=== PATIENT | female | born 1995 ===

== ENCOUNTER 2019-08-14 00:19 | Inpatient (IN) ==
[2019-08-14] MEDS ORDERED: OXYTOCIN 30 UNITS/500 ML BAG IV PRN ×2 (00:45→07:09)
[2019-08-14] MEDS: LACTATED RINGER'S 1,000 ML IV PRN ×2 (00:50→03:06)
[2019-08-14 01:03] LABS: Hemoglobin 9.7 g/dL (12.0-16.0); Mean Corpuscular Hemoglobin 30.1 pg (25-34); Mean Corpuscular Volume 93.2 fL (80-100); Mean Platelet Volume 10.2 fL (7.4-10.4); Nucleated RBC % (auto) 0.6 %; Platelet Count 176 K/uL (130-400); RDW Coefficient of Variation 13.3 % (11.5-14.5); RDW Standard Deviation 45.2 fL (36.4-46.3); Red Blood Count 3.22 M/uL (4.2-5.4); White Blood Count 14.67 K/uL (4.8-10.8)
--- NOTE | 2019-08-14 01:08 | Obstetrical Progress Note ---
Date of Service August 14, 2019 Physical Exam Physical Exam: Admit Note 23 F P0000 at 40.1 weeks admitted in active labor. GBS is negative, FHT Cat 1 with active ctx every 2-3 minutes. Cervix 7.8/90/-2/vertex. epidural planned and anticipate normal delivery. Results & Data ([facility]) Vital Signs (Past 12 Hours) Vital Signs Temp Resp 08/14/19 00:36 37.2 C 18
[2019-08-14 01:10] LABS: Mean Corpuscular Hgb Conc 32.3 g/dL (32-36)
[2019-08-14] MEDS ORDERED: BUPIVACAINE 0.25% 30 ML VIAL ONE (01:11)
[2019-08-14] MEDS ORDERED: fentaNYL citrate 100 MCG/2 ML VIAL ONE (01:11)
[2019-08-14] MEDS ORDERED: ePHEDrine sulfate 50 MG/ML AMP ONE (01:11)
[2019-08-14] MEDS ORDERED: fentaNYL 2MCG/ML ROPIV 1.25MG/ML 100 ML BAG EPI ONE (01:12)
--- NOTE | 2019-08-14 01:20 | Anesthesiology Consultation ---
Date of Service August 14, 2019 Assessment & Plan (1) Encounter for pre-operative examination: Chart Review Chart Review: Patient NOT seen in Pre Admission Testing and Acceptable Risk for Labor Epidural Consults Requested none ASA ASA2 Proposed Anesthesia Anesthesia Type: Labor Epidural Risk / Benefits Reviewed With: PT / POA / Parent / Guardian, Accepts Plan and Informed Consent Obtained History Height/Weight Height: 5 ft 3 in Weight: 70.307 kg Allergies Allergy/AdvReac Type Severity Reaction Status Date / Time azithromycin [From Zithromax] Allergy Unknown Verified 08/13/19 09:13 latex Allergy Hives Verified 08/13/19 09:13 Medications Home Medications Medication Instructions Recorded Confirmed Last Taken famotidine 20 mg PO BID 08/13/19 08/14/19 08/13/19 08:00 vit-iron fum-folic ac 1 tab PO DAILY 08/13/19 08/14/19 08/13/19 08:00 [ Vitamin] Active Medications Generic Name Dose Route Start Last Admin Trade Name Freq PRN Reason Stop Dose Admin Lactated Ringer's 1,000 mls @ 125 mls/hr 08/14/19 00:45 08/14/19 00:50 Lr IV 08/16/19 00:44 999 mls/hr .Q8H PRN Administration L&D Protocol Protocol NPO Date Last Intake of Fluids: 08/14/19 Time Last Intake of Fluids: 01:23 Date Last Intake of Solids: 08/13/19 Time Last Intake of Solids: 17:00 Past Medical History Medical History No pertinent past medical history Exercise / Class Metabolic Activity II 4-5 Yardwork/Stairs/Walk up hill Past Family History Family History Father Hypertension Past Surgical History Surgical History H/O wisdom tooth extraction History of tonsillectomy Past Anesthesia History No Hx of Anesthesia Complications History of PONV No Hx of PONV Social History Smoking Status: Never smoker Hx Alcohol Use: No Hx Substance Use: No Review of Systems Patient denies history of abnormal bleeding or bleeding disorder. Patient denies active use of anticoagulants other than low dose aspirin. Patient denies numbness, tingling or weakness in lower extremities. Physical Exam Vital Signs Last Vital Signs Temp 37.2 C 08/14/19 00:36 Resp 18 08/14/19 00:36 Constitutional not obese (Gravid uterus) ENMT Mouth: no TMJ abnormality and oral opening not small Thyromental Distance: > or= 3.5 Finger Breadths Mallampati Class: II Neck normal visual inspection; neck extension not limited Respiratory normal respiratory effort Auscultation: lungs clear to auscultation bilaterally Cardiovascular Rate/Rhythm: regular rate and regular rhythm Heart Sounds: no murmur Neurologic moves all extremities Motor/Sensory: no sensory deficit Psychiatric Orientation: alert and oriented x 3 Testing Laboratory Results 08/14/19 00:53
[2019-08-14] MEDS ORDERED: fentaNYL 2MCG/ML ROPIV 1.25MG/ML 100 ML BAG EPI PRN (01:50)
[2019-08-14] MEDS ORDERED: DiphenhydrAMINE HCL 50 MG/ML VIAL IV PRN (01:50)
[2019-08-14] MEDS ORDERED: ONDANSETRON INJ 2 MG/ML 2 ML VIAL IV PRN (01:50)
[2019-08-14] MEDS ORDERED: NALOXONE HCL 0.4 MG/1 ML VIAL/CARP IV PRN (01:50)
[2019-08-14] MEDS ORDERED: NALOXONE HCL 1 MG in SODIUM CHLORIDE 0.9% 1000ML 1,000 ML IV PRN (01:50)
[2019-08-14] MEDS ORDERED: NALBUPHINE HCL INJ 10 MG/ML AMP IV PRN (01:50)
[2019-08-14] MEDS ORDERED: ePHEDrine sulfate 50 MG/ML AMP IV PRN (01:50)
--- NOTE | 2019-08-14 02:11 | Obstetrical Progress Note ---
Date of Service August 14, 2019 Physical Exam Genitourinary: Manual OB Exam: + cervical dilation 7 cm, + cervical effacement 100%, + station -2 and + amniotic fluid clear OB Exam Monitor Tracing: + external FHT monitor used, + external uterine monitor used, + category I and + normal FHT variability AROM with Amni-hook clear fluid Results & Data ([facility]) Vital Signs (Past 12 Hours) Vital Signs Temp Pulse Resp BP Pulse Ox 08/14/19 02:09 97 H 92 08/14/19 02:07 100 H 98 08/14/19 02:02 104 H 109/75 99 08/14/19 02:00 103 H 111/70 08/14/19 01:58 94 H 110/65 08/14/19 01:57 87 97 08/14/19 01:56 94 H 110/65 08/14/19 01:54 88 117/71 08/14/19 01:52 85 116/64 97 08/14/19 01:51 95 H 91 08/14/19 01:50 93 H 18 110/72 08/14/19 01:48 81 113/67 08/14/19 01:47 81 97 08/14/19 01:46 85 119/60 08/14/19 01:45 97 H 18 122/67 91 08/14/19 01:43 18 08/14/19 01:42 89 96 08/14/19 01:38 89 94 08/14/19 01:37 92 H 94 08/14/19 01:32 87 96 08/14/19 01:29 18 08/14/19 01:27 92 H 95 08/14/19 01:23 85 94 08/14/19 01:22 83 95 08/14/19 01:17 84 93 08/14/19 00:36 37.2 C 18
[2019-08-14] MEDS ORDERED: CALCIUM CARBONATE 500 MG CHEWABLE TAB PO PRN (02:29)
--- NOTE | 2019-08-14 06:27 | Delivery Summary ---
Vaginal Delivery Summary Vaginal Delivery Summary Delivery Note live male over intact perineum with delayed cord clamping with Apgars 8/8 weight pending. Cord blood obtained. first degree tear repaired with 3/0 Vicryl. EBL 250 ml. Final sponge needle and instrument count are correct. Mom and baby stable.
[2019-08-14] MEDS ORDERED: HYDROCORTISONE ACETATE 25 MG SUPP PR PRN (07:09)
[2019-08-14] MEDS ORDERED: BENZOCAINE 20% AER SPR 82.5 GM CAN EXT PRN (07:09)
[2019-08-14] MEDS ORDERED: SUPERCREAM 0.870% 15 GM JAR EXT PRN (07:09)
[2019-08-14] MEDS ORDERED: bisacodyL 10 MG SUPP PR PRN (07:09)
[2019-08-14] MEDS ORDERED: ACETAMINOPHEN 325 MG TAB PO PRN (07:09)
[2019-08-14] MEDS ORDERED: DIPHTHERIA/TETANUS/PERTUSSIS 0.5 ML SYR/VIAL IM ONE (07:09)
--- NOTE | 2019-08-14 08:04 | Anesthesia Procedure Note ---
Date of Service August 14, 2019 Anesthesia Post Epidural Note Vital Signs Vital Signs: Temp Pulse Resp BP Pulse Ox 37.5 C 112 H 16 107/56 L 99 08/14/19 07:30 08/14/19 07:53 08/14/19 07:00 08/14/19 07:53 08/14/19 07:00 Notes Mental Status: alert / awake / arousable and participated in evaluation Nausea / Vomiting: adequately controlled Pain: adequately controlled Airway Patency, RR, SpO2: stable & adequate BP & HR: stable & adequate Hydration State: stable & adequate Neuraxial Anesthesia: was administered and sensory block is resolving Anesthetic Complications: no major complications apparent Epidural: Removed without complications and With tip intact
[2019-08-14] MEDS: IBUPROFEN 600 MG TAB PO PRN ×4 (08:09→23:00)
[2019-08-14] MEDS: FAMOTIDINE 20 MG TAB PO SCH ×2 (08:10→20:14)
[2019-08-14] MEDS: DOCUSATE SODIUM 100 MG CAP PO SCH ×2 (08:10→20:14)
[2019-08-14] MEDS: PRENATAL VITAMIN 1 TAB PO SCH (08:10)
[2019-08-14] MEDS ORDERED: NON-FORMULARY MEDICATION (Prenatal Vit-Iron Fum-Folic Ac [Prenatal Vitamin] 1 TAB) PO SCH (09:00)
[2019-08-15] MEDS: IBUPROFEN 600 MG TAB PO PRN ×5 (04:27→23:33)
[2019-08-15 06:57] LABS: Hematocrit (blood only) 24.6 % (37-47); Hemoglobin 7.8 g/dL (12.0-16.0); Mean Corpuscular Hemoglobin 30.2 pg (25-34); Mean Corpuscular Hgb Conc 31.7 g/dL (32-36); Mean Corpuscular Volume 95.3 fL (80-100); Mean Platelet Volume 10.7 fL (7.4-10.4); Platelet Count 185 K/uL (130-400); RDW Coefficient of Variation 13.8 % (11.5-14.5); RDW Standard Deviation 47.9 fL (36.4-46.3); Red Blood Count 2.58 M/uL (4.2-5.4); White Blood Count 16.48 K/uL (4.8-10.8)
[2019-08-15] MEDS: PRENATAL VITAMIN 1 TAB PO SCH (08:29)
[2019-08-15] MEDS: FAMOTIDINE 20 MG TAB PO SCH ×2 (08:29→20:21)
[2019-08-15] MEDS: DOCUSATE SODIUM 100 MG CAP PO SCH ×2 (08:29→20:21)
--- NOTE | 2019-08-15 08:57 | Obstetrical Progress Note ---
Date of Service August 15, 2019 Assessment & Plan (1) Normal course: PPD #1 Pt doing well anticipate disch tomorrow Results & Data Vital Signs (Past 12 Hours) Vital Signs Temp Pulse Resp BP Pulse Ox 08/15/19 08:00 36.6 C 85 16 103/66 99 08/15/19 04:30 36.4 C L 74 15 105/69 97 08/14/19 22:55 36.3 C L 83 16 100/60 98
[2019-08-15] MEDS: FERROUS SULFATE 325 MG TAB PO SCH (12:40)
[2019-08-15] MEDS ORDERED: bisacodyL 5 MG TABEC PO SCH (20:00)
[2019-08-16] MEDS: IBUPROFEN 600 MG TAB PO PRN (06:10)
[2019-08-16 06:21] LABS: Hematocrit (blood only) 23.5 % (37-47); Hemoglobin 7.5 g/dL (12.0-16.0)
[2019-08-16] MEDS: FAMOTIDINE 20 MG TAB PO SCH (08:24)
[2019-08-16] MEDS: FERROUS SULFATE 325 MG TAB PO SCH (08:24)
[2019-08-16] MEDS: DOCUSATE SODIUM 100 MG CAP PO SCH (08:24)
[2019-08-16] MEDS: PRENATAL VITAMIN 1 TAB PO SCH (08:24)
--- NOTE | 2019-08-16 08:46 | Obstetrical Progress Note ---
Date of Service August 16, 2019 Assessment & Plan Admission and Anticipated Discharge Date Admission Date: August 14, 2019 Subjective doing well passing gas tolerating diet Physical Exam Constitutional: WD/WN, vitals as above abdomen soft fundus firm no edema neg Ko's for discharge follow up in 6 weeks Results & Data ([place]) Vital Signs (Past 12 Hours) Vital Signs Temp Pulse Resp BP Pulse Ox 08/16/19 07:50 36.4 C L 82 16 107/70 98 08/15/19 23:30 36.5 C 85 18 110/70 Laboratory Results Laboratory Results - last 48 hr 08/15/19 08/16/19 06:19 05:59 WBC 16.48 H RBC 2.58 L Hgb 7.8 L 7.5 L Hct 24.6 L 23.5 L MCV 95.3 MCH 30.2 MCHC 31.7 L RDW Std Deviation 47.9 H RDW Coeff of Edson 13.8 Plt Count 185 MPV 10.7 H
== END 2019-08-16 11:45 | disposition home or self-care (01) | DRG 807 ==
LOC: OPB 00:19 → 4S1 00:33 → 4S2 10:20